=== PATIENT | male | born 1985 | race Two or more races ===

== ENCOUNTER 2024-08-05 01:50 | Emergency (ER) | payer MEDICAID, OTHER ==
[~2024-08-05] VITALS: Ht 175.3 cm; Wt 118.0 kg
[2024-08-05 02:25] VITALS: BP 119/83; PULSE 119; RESP 18; TEMP 100.8
[2024-08-05] MEDS: PANTOPRAZOLE 40 MG TAB PO ONE (02:27)
[2024-08-05 02:49] VITALS: O2SAT 98
[2024-08-05] MEDS: ONDANSETRON HCL 4 MG/2 ML VIAL IV ONE (03:39)
[2024-08-05] MEDS: SODIUM CHLORIDE 0.9% 2,000 ML IV ONE (03:43)
== END 2024-08-05 04:50 | disposition home or self-care (01) ==
LOC: ER 01:50 → EDBD 01:50 → ER 04:50
DX: A05.9 Bacterial foodborne intoxication, unspecified (principal); Z88.0 Allergy status to penicillin; Z90.49 Acquired absence of other specified parts of digestive tract
CPT/HCPCS: 74176; 96361; 96374; 99285; J2405; J7030